=== PATIENT | male | born 1955 | race Caucasian/White ===

== ENCOUNTER 2025-06-16 10:37 | Inpatient (IN) ==
[2025-06-16 11:36] LABS: Hematocrit (blood only) 43.5 % (42.0-52.0); Hemoglobin 15.0 g/dl (14.0-18.0); Immature Granulocytes # (auto) 0.03 K/uL (0.01-0.20); Immature Granulocytes % (auto) 0.3 %; Mean Corpuscular Hemoglobin 31.8 pg (25.0-34.0); Mean Corpuscular Volume 92.2 fL (80.0-100.0); Platelet Count 189 K/uL (130-400); RDW Standard Deviation 43.4 fL (36.4-46.3); Red Blood Count 4.72 M/uL (4.70-6.10); White Blood Count 9.14 K/ul (4.8-10.8)
[2025-06-16 11:59] LABS: Alanine Aminotransferase 17.0 U/L (7-52); Albumin Globulin Ratio 1.2 (0.9-2); Albumin Level 4.1 gm/dl (3.4-5.0); Alkaline Phosphatase 67.0 U/L (34-104); Anion Gap 7.0 (3-11); Bilirubin,Total 0.8 mg/dl (0.2-1.0); Blood Urea Nitrogen 17.0 mg/dl (6-23); Calcium 9.5 mg/dl (8.6-10.3); Carbon Dioxide 25.0 mmol/L (21-32); Chloride 104.0 mmol/L (98-107); Creatinine Clr Calc Pharmacy 62.8 ml/min; Globulin 3.4 gm/dl (2.5-4.0); Glucose 116.0 mg/dl (70-99(Fasting)); Lipase 12.0 U/L (11-82); Potassium 3.8 mmol/L (3.5-5.1); Sodium 136.0 mmol/L (136-145); Total Protein 7.5 gm/dl (6.0-8.3)
[2025-06-16 12:12] LABS: INR 1.0 (0.9-1.1); Partial Thromboplastin Time 28 Seconds (21-31); Prothrombin Time 10.7 Seconds (9.0-12.0)
[2025-06-16] MEDS: OPTIRAY 320 125ml IV ONE (12:20)
--- NOTE | 2025-06-16 12:40 | XRay Report ---
XR chest 1V portable CLINICAL HISTORY: Chest pain, nonspecific COMPARISON STUDY: None FINDINGS: There is mild cardiomegaly with mild pulmonary vascular congestion. Inspiration is shallow. There is stranding opacity in lung bases with partial obscuration of the diaphragm. No pneumothorax. IMPRESSION: 1. Mild CHF. 2. Atelectasis versus pneumonia in the lung bases. ACT 112: Negative or not required by law. Electronically signed by: Jaden Hernandez M.D. 06/16/2025 12:38 PM
--- NOTE | 2025-06-16 13:02 | CT Scan Report ---
CT angio chest PE protocol CT DOSE: 902.26 mGy.cm HISTORY: Chest Pain, eval for PE. TECHNIQUE: Multiple CTA images of the chest were obtained after the intravenous administration of 120 ml Optiray. Coronal and sagittal MIPS were obtained from the axial data set and were submitted for review. All measurements were obtained according to NASCET criteria. A dose lowering technique was u tilized adhering to the principles of ALARA. COMPARISON STUDY: Chest x-ray earlier today FINDINGS: There is stranding and bandlike consolidation at bilateral lower lobes which could represen t atelectasis or pneumonia. There are trace pleural effusions. No pneumothorax. No enlarged adenopath y. No pericardial effusion. There are scattered pulmonary emboli in the lobar and smaller pulmonary a rteries bilaterally, most prominent at the lower lobes. Clot burden is mild. RV to LV ratio is less t zabala 1. There is moderate degenerative disc disease at the thoracic spine. There is mild chronic-appea ring height loss at multiple thoracic vertebral bodies. IMPRESSION: 1. Bilateral pulmonary emboli with mild clot burden and no evidence of right heart strain. 2. Atelectasis versus early pneumonia in the lower lobes. ACT 112: Negative or not required by law. The above report was generated using voice recognition software. It may contain grammatical, syntax o r spelling errors. Electronically signed by: Jaden Hernandez M.D. 06/16/2025 1:00 PM
--- NOTE | 2025-06-16 13:59 | Emergency Department Note ---
Impression & Plan Pulmonary emboli ED Provider Note Diagnosis: Bilateral pulmonary embolism Disposition: Admission CHIEF COMPLAINT: Pain with deep breaths HPI: Patient is a 69-year-old male presenting with complaint of right-sided back pain with deep breaths. Patient states has been ongoing for 1 to 2 days time. Patient denies any anterior chest pain. Patient denies any fevers or chills. Patient denies any cough. Patient states he has never had any blood clots in his legs or lungs previously. Patient states swelling in his lower extremities at baseline but they are actually better than normal. Patient not on any blood thinners. PAST MEDICAL HISTORY: See Below PAST SURGICAL HISTORY: See Below SOCIAL HISTORY: See Below HOME MEDICATIONS: See Below ALLERGIES: See Below VITALS: See Below PHYSICAL EXAMINATION: GENERAL: Well appearing, well nourished, NAD, non-toxic. EYE EXAM: Normal conjunctiva. OROPHARYNX: Moist mucus membranes. Grossly normal dentition. NECK: Supple, LUNGS: Clear to auscultation. Normal chest wall mechanics. HEART: Sinus tachycardia ABDOMEN: Abdomen soft, non-tender, BACK: No CVA TTP. SKIN: No rashes and no bruising. UPPER EXTREMITIES: Upper extremities are grossly normal LOWER EXTREMITIES: Grossly normal, no edema. NEURO EXAM: A&O x3,, normal speech, moves all 4 extremities PSYCH: Cooperative MEDICAL DECISION MAKING: History obtained from: Patient ER Course: Patient is a 69-year-old male presenting with pain with deep breaths. Patient denies any previous blood clots. Patient denies any anterior chest pain. Patient does not have any signs of ischemia on EKG. Patient chest x-ray without pneumonia. Patient due to concern for potential blood clots was ordered a CT of the chest. Patient's room air oxygen saturation 93% and slightly tachycardic upon arrival. Patient CT scan of chest shows bilateral pulmonary embolism without right heart strain present. Patient started on weight-based heparin. Patient's case discussed with hospital service for admission for further treatment and evaluation. Labs (independently interpreted) are significant for: Troponin negative, stable hemoglobin Imaging results (independently interpreted): Chest x-ray without pneumonia EKG interpretation (independently interpreted): Sinus tachycardia no ST segment elevation or depression Medications given: Weight-based heparin drip Consultants: Hospitalist service Triage Nursing notes reviewed and agree them. Vital Signs: reviewed and remarkable for: Tachycardia Critical care 40 minutes this does not include time for procedures Past Med/Surg History Problem List (Updated 06/16/25 @ 14:03 by Ananda Nicole DO) Pulmonary emboli (Acute) Rectal bleeding Morbid obesity Osteoarthritis of right knee Arthralgia of right ankle Hyperlipidemia Bilateral lower extremity edema Hypertension Medical History History of kidney stones passed on own Bilateral lower extremity edema on occasion, right more than left Hyperlipemia Osteoarthritis HTN (hypertension) Surgical History Hx of hernia repair right inguinal H/O hernia repair (10/26/23) Open Epigastric Hernia Repair, partial omentectomy(Not Applicable) - Edis Daly DO History of colonoscopy Family History Aunt Hypertension maternal Father , 70's Brain cancer Mother , 50/s, unknown abdominal cancer Abdominal tumor Denies family history of Ovarian cancer Prostate cancer Diabetes Myocardial infarction Breast cancer Lung cancer Colorectal cancer Stroke Social History Smoking Status: Never smoker Second Hand Exposure: No; Do You Dip or Chew Tobacco: No; Hx Alcohol Use: No Hx Substance Use: No Preferred Language: Welsh Communication Ability: Effective Visual Impairment: Limited Hearing Ability: Normal Binder Stripper Machine Required: No Beliefs That Will Affect Care: None marital status: Single Current Living Situation: Alone current occupational status: retired How many Children do You have: 0 Feels Safe at Home: Yes Childhood Exposure to Second-Hand Smoke: Yes Diet: regular caffeine: Yes during the past year weight has: remained stable Dental Care, Regularly: Yes Physical Activity Frequency: Does not Exercise Seatbelt Use: always Sunscreen Use: Yes Assistive Devices: Glasses Allergies Allergies Allergy/AdvReac Type Severity Reaction Status Date / Time No Known Allergies Allergy Verified 04/22/25 11:05 Home Meds Home Medications Medication Instructions Recorded Confirmed acetaminophen 325 mg tablet 325 mg PO QID PRN Pain 04/14/25 06/16/25 (Tylenol) coenzyme Q10 100 mg capsule (Co 100 mg PO DAILY 04/14/25 06/16/25 Q-10) lisinopril 20 1 tab PO QAM 04/14/25 06/16/25 mg-hydrochlorothiazide 12.5 mg tablet multivit,calcium,min-folic acid 1 tab PO QAM 04/14/25 06/16/25 240 mcg-D3 25 mcg-lycop 300 mcg tablet (One A Day Men Complete) turmeric 400 mg capsule 400 mg PO QAM 04/14/25 06/16/25 Previous Rx's Medication Instructions Recorded amlodipine 10 mg tablet 10 mg PO QAM #90 tabs 12/31/24 rosuvastatin 5 mg tablet 5 mg PO QAM #90 tabs 03/05/25 Results & Data (ED) Vital Signs Vital Signs - 24 hr 06/16/25 10:37 06/16/25 10:40 06/16/25 11:22 Temperature 36.4 C L Temperature Source Temporal Artery Scan Pulse Rate 107 H Pulse Rate from SpO2 Sensor Respiratory Rate 20 Respiratory Effort / Characteristics Non-Labored Spontaneous Respiratory Depth Normal Respiratory Pattern Regular Blood Pressure 144/88 H Blood Pressure Mean 106 Pulse Oximetry 93 92 Oxygen Delivery Method Room Air Room Air Room Air Sepsis Recent Fever Within 48 Hours No Sepsis New/Unexplained Change in Mental Status No Sepsis Action Taken by Nursing No Action Required 06/16/25 11:48 06/16/25 13:00 Temperature Temperature Source Pulse Rate 100 H 83 Pulse Rate from SpO2 Sensor 84 Respiratory Rate 19 Respiratory Effort / Characteristics Respiratory Depth Respiratory Pattern Blood Pressure 140/88 Blood Pressure Mean 96 Pulse Oximetry 94 Oxygen Delivery Method Room Air Sepsis Recent Fever Within 48 Hours Sepsis New/Unexplained Change in Mental Status Sepsis Action Taken by Nursing Laboratory Data 06/16/25 11:05 06/16/25 11:05 Lab Results 06/16/25 06/16/25 Range/Units 11:05 11:11 WBC 9.14 (4.8-10.8) K/ul RBC 4.72 (4.70-6.10) M/uL Hgb 15.0 (14.0-18.0) g/dl POC Hgb 16.0 (14.0-18.0) g/dl Hct 43.5 (42.0-52.0) % POC Hct 47 (42-52) % MCV 92.2 (80.0-100.0) fL MCH 31.8 (25.0-34.0) pg MCHC 34.5 (32.0-36.0) g/dL RDW Std Deviation 43.4 (36.4-46.3) fL RDW Coeff of Jd 12.8 (11.5-14.5) % Plt Count 189 (130-400) K/uL MPV 9.4 (9.4-12.4) fL Immature Gran % (Auto) 0.3 % Neut % (Auto) 69.4 % Lymph % (Auto) 22.1 % Kemper % (Auto) 6.6 % Eos % (Auto) 0.9 % Baso % (Auto) 0.7 % Neut # (Auto) 6.35 (1.40-6.50) K/uL Lymph # (Auto) 2.02 (1.20-3.40) K/uL Kemper # (Auto) 0.60 H (0.11-0.59) K/uL Eos # (Auto) 0.08 (0.00-0.50) K/uL Baso # (Auto) 0.06 (0.00-0.20) K/uL Immature Gran # (Auto) 0.03 (0.01-0.20) K/uL PT 10.7 (9.0-12.0) Seconds INR 1.0 (0.9-1.1) APTT 28 (21-31) Seconds PTT Ratio 1.0 POC Sodium 139 (135-144) mmol/L Sodium 136 (136-145) mmol/L POC Potassium 3.8 (3.3-5.0) mmol/L Potassium 3.8 (3.5-5.1) mmol/L POC Chloride 101 (101-112) mmol/L Chloride 104 (98-107) mmol/L Carbon Dioxide 25 (21-32) mmol/L POC Total CO2 26 (24-31) mmol/L Anion Gap 7 (3-11) POC Anion Gap 16.0 (16-25) mmol/L POC BUN 16 (7-18) mg/dl BUN 17 (6-23) mg/dl Creatinine 1.22 (0.6-1.4) mg/dl POC Creatinine 1.3 (0.6-1.3) mg/dl Est Cr Clr Drug Dosing 62.8 ml/min eGFR 64.18 BUN/Creatinine Ratio 13.9 (10-20) Glucose 116 H (70-99(Fasting)) mg/dl POC Glucose (other) 114 H (70-99) mg/dl Calcium 9.5 (8.6-10.3) mg/dl POC Ioniz Calcium Mukesh 1.17 (1.12-1.32) mmol/l Total Bilirubin 0.8 (0.2-1.0) mg/dl AST 16 (13-39) U/L ALT 17 (7-52) U/L Alkaline Phosphatase 67 (34-104) U/L Troponin I High Sens 3.5 (0-20) pg/ml B-Natriuretic Peptide 33 (0-100) pg/ml Total Protein 7.5 (6.0-8.3) gm/dl Albumin 4.1 (3.4-5.0) gm/dl Globulin 3.4 (2.5-4.0) gm/dl Albumin/Globulin Ratio 1.2 (0.9-2) Lipase 12 (11-82) U/L Administered Medications Discontinued Medications Heparin Sodium/Dextrose (Heparin Iv Adult Wt-Based Standard W/ Initial Bolus Protocol) 1 each IV NOW STA; Protocol Stop: 06/16/25 13:43 Last Admin: 06/16/25 14:00 Dose: Not Given Documented By: RADHA Ioversol (Optiray 320 125ml) 119 ml IV ONCE ONE Stop: 06/16/25 12:21 Last Admin: 06/16/25 12:20 Dose: 119 ml Documented By: YOMI Imaging Data Radiologist's Impression: Chest CTA 06/16/25 11:22 CT angio chest PE protocol CT DOSE: 902.26 mGy.cm HISTORY: Chest Pain, eval for PE. TECHNIQUE: Multiple CTA images of the chest were obtained after the intravenous administration of 120 ml Optiray. Coronal and sagittal MIPS were obtained from the axial data set and were submitted for review. All measurements were obtained according to NASCET criteria. A dose lowering technique was utilized adhering to the principles of ALARA. COMPARISON STUDY: Chest x-ray earlier today FINDINGS: There is stranding and bandlike consolidation at bilateral lower lobes which could represent atelectasis or pneumonia. There are trace pleural effusions. No pneumothorax. No enlarged adenopathy. No pericardial effusion. There are scattered pulmonary emboli in the lobar and smaller pulmonary arteries bilaterally, most prominent at the lower lobes. Clot burden is mild. RV to LV ratio is less than 1. There is moderate degenerative disc disease at the thoracic spine. There is mild chronic-appearing height loss at multiple thoracic vertebral bodies. IMPRESSION: 1. Bilateral pulmonary emboli with mild clot burden and no evidence of right heart strain. 2. Atelectasis versus early pneumonia in the lower lobes. ACT 112: Negative or not required by law. The above report was generated using voice recognition software. It may contain grammatical, syntax or spelling errors. Electronically signed by: Jaden Hernandez M.D. 06/16/2025 1:00 PM Chest X-Ray 06/16/25 11:22 XR chest 1V portable CLINICAL HISTORY: Chest pain, nonspecific COMPARISON STUDY: None FINDINGS: There is mild cardiomegaly with mild pulmonary vascular congestion. Inspiration is shallow. There is stranding opacity in lung bases with partial obscuration of the diaphragm. No pneumothorax. IMPRESSION: 1. Mild CHF. 2. Atelectasis versus pneumonia in the lung bases. ACT 112: Negative or not required by law. Electronically signed by: Jaden Hernandez M.D. 06/16/2025 12:38 PM Discharge Plan Visit Data Chief Complaint: Shortness of Breath/Dyspnea Stated Complaint: CAN'T TAKE DEEP BREATH ED Provider: Ananda Nicoel Discharge Problem: Pulmonary emboli Condition: Serious Forms Stand Alone Forms: [employer] Prescriptions Prescriptions: No Action amlodipine 10 mg tablet 10 mg PO QAM Qty: 90 3RF rosuvastatin 5 mg tablet 5 mg PO QAM Qty: 90 3RF acetaminophen [Tylenol] 325 mg Tablet 325 mg PO QID PRN (Reason: Pain) Patient Comments: 06/16- otc unable to verify coenzyme Q10 [Co Q-10] 100 mg Capsule 100 mg PO DAILY Patient Comments: 06/16- otc unable to verify turmeric 400 mg Capsule 400 mg PO QAM Patient Comments: 06/16- otc unable to verify One A Day Men Complete 240-25-300 mcg Tablet 1 tab PO QAM Patient Comments: 06/16- otc unable to verify lisinopril-hydrochlorothiazide 20-12.5 mg tablet 1 tab PO QAM Referrals Referrals: Ronald Frausto DO [Primary Care Provider] -
[2025-06-16] MEDS: Heparin IV Adult Wt-Based Standard w/ INITIAL Bolus Protocol IV STA (14:00)
[2025-06-16] MEDS ORDERED: HEPARIN 25000 UNIT/500 ML D5W 25,000 UNITS/500 ML BAG IV SCH (14:00)
[2025-06-16] MEDS ORDERED: ACETAMINOPHEN 325 MG TAB PO PRN (14:20)
[2025-06-16] MEDS ORDERED: MELATONIN 3 MG TAB PO PRN (14:20)
[2025-06-16] MEDS ORDERED: POLYETHYLENE (MIRALAX) 17 GM PACK PO PRN (14:20)
[2025-06-16] MEDS ORDERED: ONDANSETRON INJ 2 MG/ML 2 ML VIAL IV PRN (14:20)
[2025-06-16] MEDS: HEPARIN SOD (PORCINE) 1000 UNIT/ML IV ONE (14:25)
[2025-06-16] MEDS: HEPARIN 25000 UNIT/500 ML D5W 25,000 UNITS/500 ML BAG IV SCH (14:25)
--- NOTE | 2025-06-16 14:39 | History & Physical Report ---
Date of Service June 16, 2025 Assessment & Plan (1) Pulmonary emboli: (2) Hypertension: (3) Hyperlipidemia: (4) Bilateral lower extremity edema: Plan This is a 69 year old gentleman with PMHx of b/l LE edema, HTN, morbid obesity who presented to the ED On 06/16/2025 with chief complaint of pain with inspiration. While in the ED, he underwent a chest CTA that was significant for b/l pulmonary emboli with mild clot burden and no evidence of right heart strain. CXR was consistent with likely atelectasis given absent clinical symptoms of pneumonia. CBC/BMP unremarkable. PT/INR WNL. He was started on a heparin drip in the ED which will be continued upon admission. #Bilateral pulmonary emboli w/ ~ 2 day hx of pain upon inspiration CXR consistent w/ atelectasis. did reveal possible pneumonia but pt is asymptomatic in that aspect. Chest CTA: b/l pulmonary emboli w/ mild clot burden & no evidence of right heart strain. CBC/BMP stable. b/l LE doppler + echo pending Continue heparin drip, plan to transition to Eliquis 06/17. AM CBC, BMP #Chronic LE edema present on physical exam Doppler pending as above Consider alternative BP med from amlodipine given LE edema but can be discussed w/ PCP on outpatient basis. Woody stockings #HTN - BP normotensive. Continue anti-hypertensives #HLD - statin DVT prophylaxis: heparin drip Code: DNR/DNI Case was discussed with Dr. Wagner at time of admission. History of Present Illness Primary Care Provider: Ronald Frausto DO This is a 69 year old gentleman with PMHx of b/l LE edema, HTN, morbid obesity who presented to the ED On 06/16/2025 with chief complaint of pain with deep breathing. Gerald was seen & examined this afternoon. He states that for about 2 days he noticed that when breathing deep, he was having pain on his right lateral side. He denies shortness of breath or chest pain. He denies any recent travel or extensive periods of being sedentary. He reports his brother who had issues with clots. He reports he has chronic LE edema and thought it was improved over the last few days. He denies any nausea, vomiting, abdominal pain, changes in bowel/urination. Denies any headache, dizziness, fever, chills. While in the ED, he underwent a chest CTA that was significant for b/l pulmonary emboli with mild clot burden and no evidence of right heart strain. CXR was consistent with likely atelectasis given absent clinical symptoms of pneumonia. CBC/BMP unremarkable. PT/INR WNL. He was started on a heparin drip in the ED which will be continued upon admission. Code discussion did take place and he does confirm that he is a DNR/DNI Allergies Allergy/AdvReac Type Severity Reaction Status Date / Time No Known Allergies Allergy Verified 04/22/25 11:05 Home Medications Medication Instructions Recorded Confirmed Type amlodipine 10 mg tablet 10 mg PO QAM #90 tabs 12/31/24 06/16/25 Rx rosuvastatin 5 mg tablet 5 mg PO QAM #90 tabs 03/05/25 06/16/25 Rx acetaminophen 325 mg tablet 325 mg PO QID PRN Pain 04/14/25 06/16/25 History (Tylenol) coenzyme Q10 100 mg capsule (Co 100 mg PO DAILY 04/14/25 06/16/25 History Q-10) lisinopril 20 1 tab PO QAM 04/14/25 06/16/25 History mg-hydrochlorothiazide 12.5 mg tablet multivit,calcium,min-folic acid 1 tab PO QAM 04/14/25 06/16/25 History 240 mcg-D3 25 mcg-lycop 300 mcg tablet (One A Day Men Complete) turmeric 400 mg capsule 400 mg PO QAM 04/14/25 06/16/25 History Past Med/Surg History Problem List (Updated 06/16/25 @ 14:03 by Ananda Nicole DO) Pulmonary emboli (Acute) Rectal bleeding Morbid obesity Osteoarthritis of right knee Arthralgia of right ankle Hyperlipidemia Bilateral lower extremity edema Hypertension Medical History History of kidney stones passed on own Bilateral lower extremity edema on occasion, right more than left Hyperlipemia Osteoarthritis HTN (hypertension) Surgical History Hx of hernia repair right inguinal H/O hernia repair (10/26/23) Open Epigastric Hernia Repair, partial omentectomy(Not Applicable) - Edis Daly DO History of colonoscopy Family History Aunt Hypertension maternal Father , 70's Brain cancer Mother , 50/s, unknown abdominal cancer Abdominal tumor Denies family history of Ovarian cancer Prostate cancer Diabetes Myocardial infarction Breast cancer Lung cancer Colorectal cancer Stroke Social History Smoking Status: Never smoker Second Hand Exposure: No; Do You Dip or Chew Tobacco: No; Hx Alcohol Use: No Hx Substance Use: No Preferred Language: Malawian Communication Ability: Effective Visual Impairment: Limited Hearing Ability: Normal Commissioning Agent Required: No Beliefs That Will Affect Care: None marital status: Single Current Living Situation: Alone current occupational status: retired How many Children do You have: 0 Feels Safe at Home: Yes Childhood Exposure to Second-Hand Smoke: Yes Diet: regular caffeine: Yes during the past year weight has: remained stable Dental Care, Regularly: Yes Physical Activity Frequency: Does not Exercise Seatbelt Use: always Sunscreen Use: Yes Assistive Devices: Glasses Physical Exam Physical Exam: General: NAD, VS: BP 140/88; P83; T36.4C Resp: normal respiratory effort, lungs clear to auscultation CV: RRR, no murmur Abd: normal bowel sounds, non tende Extremities: Moves all extremities, 1+ b/l LE edema Neuro: A&O x3, strength intact Skin: intact, no lesions noted Results & Data Results & Data Vital Signs (Past 12 Hours) Vital Signs Temp Pulse Resp BP Pulse Ox O2 Del Method 06/16/25 13:00 83 19 140/88 94 Room Air 06/16/25 11:48 100 H 06/16/25 11:22 92 Room Air 06/16/25 10:40 36.4 C L 107 H 20 144/88 H 93 Room Air 06/16/25 10:37 Room Air Supervising Physician Co-Signing Physician Notes The patient was seen by me. The chart was reviewed. Case discussed with NILDA Unger. Agree with assessment and plan PG Care Time/CCT Total # of Minutes Spent Total Time Spent with Patient: Total time spent is greater than 50% in coordination of care (as documented) at patient's floor/unit and/or counseling patient: Coding Level of Care Code 27021 INT INP/OBS CARE MIN Diagnoses Pulmonary emboli I26.99 Hypertension I10 Hyperlipidemia E78.5 Bilateral lower extremity edema R60.0
--- NOTE | 2025-06-16 16:25 | XCELERA ---
[id number]
--- NOTE | 2025-06-16 16:25 | Ultrasound Report ---
Technique: Venous ultrasound evaluation was performed utilizing grayscale, color Doppler and wave form evaluation. Images were also obtained with and without compression Findings: The bilateral common femoral, superficial femoral, popliteal, and visualized calf veins demonstrate normal anechoic lumens with full compressibility. Normal flow is seen on color Doppler images. Expected waveforms were produced with augmentation maneuvers There is a 2.9 x 2.3 x 1 cm left knee Jamison's cyst Impression: 1. No evidence of deep venous thrombosis 2. Left knee Jamison's cyst Electronically signed by Lazarus Powell 06-16-2025 4:25 PM
--- NOTE | 2025-06-16 17:06 | Electrocardiogram Report ---
Test Reason : Blood Pressure : */* mmHG Vent. Rate : 101 BPM Atrial Rate : 101 BPM P-R Int : 144 ms QRS Dur : 84 ms QT Int : 354 ms P-R-T Axes : 37 -5 42 degrees QTcB Int : 459 ms Sinus tachycardia Otherwise normal ECG When compared with ECG of 20-Sep-2023 14:36, Questionable change in QRS axis Confirmed by Rodney Slaazar ([id number]) on 06/16/2025 5:06:26 PM Referred By: REFERRED SELF Confirmed By: Rodney Salazar
[2025-06-16 21:40] LABS: ANTI-Xa, UFH(UnfractionatedHep 0.29 IU/ml (0.3-0.7)
[2025-06-17 06:01] LABS: Hematocrit (blood only) 42.3 % (42.0-52.0); Hemoglobin 15.3 g/dl (14.0-18.0); Mean Corpuscular Hemoglobin 32.8 pg (25.0-34.0); Mean Corpuscular Volume 90.8 fL (80.0-100.0); Platelet Count 186 K/uL (130-400); RDW Standard Deviation 42.3 fL (36.4-46.3); Red Blood Count 4.66 M/uL (4.70-6.10); White Blood Count 8.77 K/ul (4.8-10.8)
[2025-06-17 06:17] LABS: Anion Gap 12.0 (3-11); Blood Urea Nitrogen 14.0 mg/dl (6-23); Calcium 9.1 mg/dl (8.6-10.3); Carbon Dioxide 23.0 mmol/L (21-32); Chloride 101.0 mmol/L (98-107); Creatinine Clr Calc Pharmacy 76.2 ml/min; Glucose 117.0 mg/dl (70-99(Fasting)); Potassium 3.7 mmol/L (3.5-5.1); Sodium 136.0 mmol/L (136-145)
[2025-06-17 06:23] LABS: ANTI-Xa, UFH(UnfractionatedHep 0.30 IU/ml (0.3-0.7)
[2025-06-17] MEDS: ROSUVASTATIN CALCIUM 5 MG TAB PO SCH (07:49)
[2025-06-17] MEDS: LISINOPRIL/HCTZ 20/12.5MG 1 TAB TAB PO SCH (07:49)
[2025-06-17] MEDS: APIXABAN 5 MG TABLET PO ONE (10:48)
[2025-06-17 11:04] VITALS: BP 117/73; PULSE 81; RESP 20; TEMP 97.5; O2SAT 94
--- NOTE | 2025-06-17 11:19 | Discharge Summary ---
Discharge Summary Date of Service June 17, 2025 Principal Dx & Hospital Course #1 = Principal Diagnosis (1) Pulmonary emboli: (2) Hypertension: (3) Hyperlipidemia: (4) Bilateral lower extremity edema: Plan This is a 69 year old gentleman with PMHx of b/l LE edema, HTN, morbid obesity who presented to the ED On 06/16/2025 with chief complaint of pain with inspiration. #Bilateral pulmonary emboli w/ ~ 2 day hx of pain upon inspiration [employer] and has sinceu resolved. CXR consistent w/ atelectasis. did reveal possible pneumonia but pt is asymptomatic in that aspect. Chest CTA: b/l pulmonary emboli w/ mild clot burden & no evidence of right heart strain. Doppler US of b/l LE negative Echo w/ EF 60-65%; grade 1 diastolic dysfunction. CBC/BMP stable. s/p heparin drip, transitioned to Eliquis on 06/17 #Chronic LE edema present on physical exam Doppler negative Consider alternative BP med from amlodipine given LE edema but can be discussed w/ PCP on outpatient basis. #HTN - BP normotensive. Continue anti-hypertensives #HLD - statin Patient discharged home 06/17. Admission HPI Per Admitting Provider This is a 69 year old gentleman with PMHx of b/l LE edema, HTN, morbid obesity who presented to the ED On 06/16/2025 with chief complaint of pain with deep breathing. Gerald was seen & examined this afternoon. He states that for about 2 days he noticed that when breathing deep, he was having pain on his right lateral side. He denies shortness of breath or chest pain. He denies any recent travel or extensive periods of being sedentary. He reports his brother who had issues with clots. He reports he has chronic LE edema and thought it was improved over the last few days. He denies any nausea, vomiting, abdominal pain, changes in bowel/urination. Denies any headache, dizziness, fever, chills. While in the ED, he underwent a chest CTA that was significant for b/l pulmonary emboli with mild clot burden and no evidence of right heart strain. CXR was consistent with likely atelectasis given absent clinical symptoms of pneumonia. CBC/BMP unremarkable. PT/INR WNL. He was started on a heparin drip in the ED which will be continued upon admission. Code discussion did take place and he does confirm that he is a DNR/DNI Discharge Exam General: NAD, VS: BP 117/73; P81; T36.4C Resp: normal respiratory effort, lungs clear to auscultation CV: RRR, no murmur Extremities: mild LE b/l edema Neuro: A&O x3 Skin: intact, no lesions noted Discharge Plan Discharge Items Patient Disposition: Home - Self-Care Reason For Visit: SOB Discharge Diagnosis: bilateral pulmonary emboli Activity: Resume your previous activity Non-emergency contact: Primary Care Provider Call non-emergency contact if: you have any medication questions, your symptoms worsen and your pain is not controlled Follow-up/Referrals: Ronald Frausto DO [Primary Care Provider] - 06/23/25 11:30 am Diet: Heart Healthy Addtl Attending Provider Instructions: Mr. Castro, You were recently hospitalized secondary to pain with inspiration of breathing. You were found to have two blood clots in your lungs. You were treated with IV Heparin and have transitioned to oral anticoagulation so it is safe for you to return home. Medications: Your medication list has been reviewed and reconciled upon discharge to ensure accuracy and continuity of care. An updated list of all your medications is included with your hospital discharge paperwork. Please review this list closely, and make note of any changes. Eliquis has been sent to your pharmacy. - Please take two tablets by mouth for seven days with your first dose being this evening, 06/17. After the seven days, you make take one tablet by mouth twice daily. Take your medications as instructed; do not skip a dose of your medicines. Make sure all of your doctors know every medicine you are taking (including zsao-[id number] medicines, vitamins, and supplements). Call your primary care provider before taking any new medicines (including over- the-counter medicines, vitamins, and supplements), because some of these may interact with your current medications, or may make your symptoms worse. Tell your primary care provider if you cannot afford your medications. Activity: You can do normal everyday activities as your body allows. Take rest breaks if you feel tired. Do not overexert. Stop activity if you have pain, shortness of breath or feel dizzy. Follow-up appointments: Make an appointment with your primary care physician within one week of discharge. A copy of this summary will be sent to them. Every time you see your primary care physician, or any other doctor, bring your medication list, and a list of questions. CONTACT YOUR PRIMARY CARE PROVIDER if you experience any of the following: Shortness of breath or difficulty breathing Fevers or chills Feeling tired with normal activity or experiencing dizziness or fainting Difficulty following your treatment plan, or difficulty taking medications CALL 911 OR GO TO THE EMERGENCY DEPARTMENT if you experience any of the following: Severe abdominal pain or nausea/vomiting Severe chest pain, or chest pain that radiates (moves) to your jaw or arm Sudden, severe shortness of breath or difficulty breathing Thank you for allowing us to participate in your care. Pending Studies at Discharge: No Stand-Alone Forms: My [facility], Smoking Cessation Medications and DC Order Prescriptions: New Eliquis 5 mg tablet 5 mg PO BID Qty: 74 0RF Rx Instructions: Please take two tablets by mouth twice daily for seven days followed by one tablet by mouth twice daily. Continued amlodipine 10 mg tablet 10 mg PO QAM Qty: 90 3RF rosuvastatin 5 mg tablet 5 mg PO QAM Qty: 90 3RF acetaminophen [Tylenol] 325 mg Tablet 325 mg PO QID PRN (Reason: Pain) Patient Comments: 06/16- otc unable to verify coenzyme Q10 [Co Q-10] 100 mg Capsule 100 mg PO DAILY Patient Comments: 06/16- otc unable to verify turmeric 400 mg Capsule 400 mg PO QAM Patient Comments: 06/16- otc unable to verify One A Day Men Complete 240-25-300 mcg Tablet 1 tab PO QAM Patient Comments: 06/16- otc unable to verify lisinopril-hydrochlorothiazide 20-12.5 mg tablet 1 tab PO QAM Discharge Orders: Discharge Order (Routine); Ordered 06/17/25 Ordered By: Mayda Sutherland Admission Data Admit Date/Time: 06/16/25 14:23 Attending Provider: Oleg Wagner Admit Provider: Oleg Wagner Primary Care Provider: Ronald Frausto Other Providers: Oleg Wagner Other Interventions: Discharge Summary Assessment (RN) Last Done: 06/17/25 11:28 Hospital Stay Data Consultations 06/16/25 13:46 ED Decision to Admit Stat Diagnostic Imagining Performed 06/16/25 11:22 CT angio chest PE protocol Stat 06/16/25 14:20 US venous doppler LE BI Urgent Pending Results Patient Have Any Pending Studies at Discharge: No Discharge Instructions Given to Patient (Per Discharging Provider) Mr. Castro, Christian were recently hospitalized secondary to pain with inspiration of breathing. You were found to have two blood clots in your lungs. You were treated with IV Heparin and have transitioned to oral anticoagulation so it is safe for you to return home. Medications: Your medication list has been reviewed and reconciled upon discharge to ensure accuracy and continuity of care. An updated list of all your medications is included with your hospital discharge paperwork. Please review this list closely, and make note of any changes. Eliquis has been sent to your pharmacy. - Please take two tablets by mouth for seven days with your first dose being this evening, 06/17. After the seven days, you make take one tablet by mouth twice daily. Take your medications as instructed; do not skip a dose of your medicines. Make sure all of your doctors know every medicine you are taking (including [id number] medicines, vitamins, and supplements). Call your primary care provider before taking any new medicines (including over- the-counter medicines, vitamins, and supplements), because some of these may interact with your current medications, or may make your symptoms worse. Tell your primary care provider if you cannot afford your medications. Activity: You can do normal everyday activities as your body allows. Take rest breaks if you feel tired. Do not overexert. Stop activity if you have pain, shortness of breath or feel dizzy. Follow-up appointments: Make an appointment with your primary care physician within one week of discharge. A copy of this summary will be sent to them. Every time you see your primary care physician, or any other doctor, bring your medication list, and a list of questions. CONTACT YOUR PRIMARY CARE PROVIDER if you experience any of the following: Shortness of breath or difficulty breathing Fevers or chills Feeling tired with normal activity or experiencing dizziness or fainting Difficulty following your treatment plan, or difficulty taking medications CALL 911 OR GO TO THE EMERGENCY DEPARTMENT if you experience any of the following: Severe abdominal pain or nausea/vomiting Severe chest pain, or chest pain that radiates (moves) to your jaw or arm Sudden, severe shortness of breath or difficulty breathing Thank you for allowing us to participate in your care. Supervising Physician Co-Signing Physician Notes The patient was not seen by me. The chart was reviewed. Case discussed with NILDA Unger. Agree with assessment and plan Total Time Total Time Spent Total Time Spent (In Minutes): 55 Total Time Includes: Examination of the Patient, Discharge Planning, Medication Reconciliation and Communication With Other Providers Coding Level of Care Code 04559 INP/OBS DISCH >30 MIN Diagnoses Pulmonary emboli I26.99 Hypertension I10 Hyperlipidemia E78.5 Bilateral lower extremity edema R60.0
[2025-06-17] MEDS: PNEUMOCOCCAL VACCINE (PCV20) 20-VAL CONJ-DIP CRM/PF 0.5 ML SYR IM ONE (14:23)
[2025-06-17] MEDS: INFLUENZA VACC TS2025-26(65y+)/PF (IIV3) 0.5mL Syr IM ONE (14:23)
== END 2025-06-17 14:25 | disposition home or self-care (01) | DRG 175 ==
LOC: SUATTDRO → ED 10:37 → EDINP 14:23 → 2S 06-17 01:43